=== PATIENT | male | born 2000 | race Caucasian/White ===

== ENCOUNTER 2024-01-26 01:38 | Inpatient (IN) | payer OTHER, SELFPAY ==
--- NOTE | 2024-01-26 01:53 | MHC.EDTECH ---
SISTER CALLS: [phone] AUNT CALLS: HIRO ALLISON: [phone] COUSIN IN WR @ THIS TIME
[2024-01-26 01:56] VITALS: BP 126/82; PULSE 96; RESP 16; O2SAT 97; BMI 35.0
[2024-01-26 02:03] VITALS: BP 107/59; PULSE 74; TEMP 36.9; O2SAT 95
[2024-01-26 02:50] LABS: MANUAL DIFF FLAG NO
[2024-01-26 02:51] LABS: Basophils Percent Auto 0.3 % (0-2); Eosinophils Absolute Auto 0.3 X10*3/uL (0.0-0.4); Eosinophils Percent Auto 2.9 % (0-4); Hematocrit 39.7 % (42.0-52.0); Hemoglobin 12.9 g/dl (14.0-18.0); Imm Gran Abs Auto 0.05 X10*3/uL (0.00-0.03); Imm Gran Pct Auto 0.5 % (0.0-0.4); Lymphocytes Absolute Auto 2.2 X10*3/uL (1.2-4.9); Lymphocytes Percent Auto 20.5 % (20-40); Mean Corpuscular HGB Conc 32.5 g/dl (31.0-36.0); Mean Corpuscular Volume 76.8 fL (80.0-98.0); Mean Platelet Volume 9.2 fL (9.4-12.4); Monocytes Absolute Auto 0.8 X10*3/uL (0.1-1.2); Monocytes Percent Auto 7.6 % (2-11); Neutrophils Absolute Auto 7.3 x10*3/uL (2.0-8.3); Neutrophils Percent Auto 68.2 % (45-73); Platelet Count 276 X10*3/uL (160-400); Red Blood Count 5.17 X10*6/uL (4.60-5.80); Red Cell Distribution Width 14.5 % (11.0-16.0); White Blood Count 10.7 X10*3/uL (4.8-10.8)
[2024-01-26 03:10] LABS: Ethanol < 10 mg/dL
[2024-01-26 03:12] LABS: Amphetamine Screen Urine Not Detected (Not Detect); Barbiturates, Urine Not Detected (Not Detect); Benzodiazepines Screen Urine Not Detected (Not Detect); Buprenorphine Scr Not Detected (Not Detect); Cannabinoid Screen Urine Not Detected (Not Detect); Cocaine Screen Urine Not Detected (Not Detect); Fentanyl, urine Not Detected (Not Detect); Methadone Screen, Urine Not Detected (Not Detect); Opiate Screen Urine Not Detected (Not Detect); Oxycodone Screen Urine Not Detected (Not Detect); Phencyclidine Screen Urine Not Detected (Not Detect)
[2024-01-26 03:15] LABS: Alanine Aminotransferase 39 U/L (0-40); Albumin Level 4.1 g/dL (3.5-5.0); Alkaline Phosphatase 74 U/L (39-117); Anion Gap 15 (12-20); Aspartate Amino Transferase 26 U/L (5-37); Bilirubin Total 0.2 mg/dL (0.0-1.0); Blood Urea Nitrogen 18 mg/dL (9-16); Calcium 9.8 mg/dL (8.4-10.2); Carbon Dioxide 24 mmol/L (22-29); Chloride 105 mmol/L (96-108); Creatinine Clr Calc Pharmacy 153.7; Estimated Glomerular Filt Rate > 60; Glucose Random 90 mg/dL (60-115); Potassium 4.2 mmol/L (3.3-5.1); Sodium 140 mmol/L (135-145); Total Protein 7.7 g/dL (6.5-8.0)
[2024-01-26 03:22] LABS: Acetaminophen LAB < 3 mcg/mL (<30); Salicylate < 5.0 mg/dL (15-30)
--- NOTE | 2024-01-26 05:18 | ED.PSYCH ---
HPI - Psych General Chief Complaint: Psychiatric Symptoms Stated Complaint: SI, ATTEMPT [facility]UMP [facility] PER EMS Time Seen by Provider: 01/26/24 05:17 Source: patient and EMS Mode of arrival: EMS Limitations: no limitations History of Present Illness ED Provider: DR. Montenegro HPI Narrative: 23-year-old male came in for evaluation of depression and SI. Patient was about to jump off the bridge when the police stopped him from jumping. Patient stated that he feels depressed because of a cumulative reason that is been piling up for awhile. declined any visual or auditory hallucination. Related Data Home Medications ?Medication ?Instructions ?Recorded ?Confirmed No Known Home Meds 01/26/24 01/26/24 Allergies Allergy/AdvReac Type Severity Reaction Status Date / Time No Known Allergies Allergy Verified 01/26/24 02:00 Review of Systems Review of Systems: all other systems are reviewed and are negative Constitutional: Reports as per HPI and Reports no additional constitutional complaints Eyes: Reports as per HPI and Reports no additional eye complaints Reports system reviewed and no additional complaints, except as documented Cardiovascular: Reports as per HPI and Reports no additional cardiovascular complaints Respiratory: Reports as per HPI and Reports no additional respiratory complaints Gastrointestinal: Reports as per HPI and Reports no additional gastrointestinal complaints Genitourinary: Reports no additional female genitourinary complaints Musculoskeletal: Reports no additional musculoskeletal complaints Skin/Breast: Reports system reviewed and no additional complaints, except as docu Psychiatric: Reports no additional psychiatric complaints Endocrine: Reports no additional endocrine complaints Hematologic/Lymphatic: Reports no additional hematologic/lymphatic complaints Allergic/Immunologic: Reports no additional allergic/immunologic complaints Reports system reviewed and no additional complaints, except as documented and Reports Abnormal speech present [facility] Social History Social History Advance Directives: No Advance Directives Information Provided: No Do you have a plan to hurt others: No Plan Physical Exam Vital Signs: Vital Signs: Last Vital Signs Temp 98.5 F 01/26/24 02:03 Pulse 74 01/26/24 02:03 Resp 16 01/26/24 01:56 BP 107/59 L 01/26/24 02:03 Pulse Ox 95 01/26/24 02:03 O2 Del Method Room Air 01/26/24 02:03 BMI result Body Mass Index 35.0 Vital signs have been reviewed and appear to be correct. Blood pressure elevated. Heart rate normal. Respiratory rate normal. Temperature normal. Oxygen saturation normal. Appearance: Alert. Oriented X3. No acute distress. Head: Normal external exam. Normocephalic. Atraumatic. No Garcia signs noted. No raccoon eyes noted Eyes: PERRLA. EOMI. Conjunctiva and sclera normal. Eyelids normal. ENT: TM's Normal. Pharynx normal. Uvula midline. Moist mucous membranes. No trismus noted. No drooling noted. No muffled voice noted. Neck: Normal inspection. Neck supple. FROM. No adenopathy. Thyroid Normal. No meningeal signs. No neck mass noted. CVS: Normal heart rate and rhythm. Heart sound normal. No murmurs noted. Pulses normal throughout. Respiratory: No respiratory distress. Painless inspiration. Breath sounds normal. No wheezes/rales/rhonchi noted. Chest nontender. No accessory muscle usage noted or decreased air movement noted. Abdomen: Soft and nontender. Bowel sounds normal in all 4 quadrants. No distention noted. No organomegaly noted. No visible injury noted. Back: No CVA tenderness. Full range of motion noted. Skin: Skin warm and dry. Normal skin color. Normal skin turgor. No rashes/lesions/lacerations noted. Extremities: No lower extremity edema. Extremities exhibit normal range of motion. Extremities nontender. Neuro: Oriented X 3. Cranial nerve exam: II-XII are grossly intact No motor deficit. No sensory deficit. Reflexes normal. Patient Orientation: Person, Place, Time and Situation, okay hygiene and grooming. Fair eye contact, attentive, no tics or tremors. Level of Consciousness: Awake, Appropriate and Alert Patient Behavior: Appropriate, Guarded, Cooperative and Anxious Mood Description: Constricted, Blunted and Apprehensive Affect Description: Constricted, Blunted and Apprehensive Patient Cognition Impaired: No Ability to Follow Directions: Excellent Speech Pattern: Clear, Appropriate and Spontaneous Speech, nonpressured, spontaneous with regular rate and rhythm, normal volume and prosody. No dysarthria. Memory Description: Intact, Immediate Intact and Short Term Intact Hallucinations: None Delusions: Not Present Thought Process: Intact Thought Content: presence of Suicidal Ideation and denies Homicidal Ideation. Depressive Symptoms: Not present. Judgement and Insight: Limited but adequate. Course Reevaluation(s) Reevaluation #1: medically cleared, care team evaluation is appreciated, patient is under section 12 now, start physician observation start physician observation now Time: 05:23 Medical Decision Making Differential Diagnosis Differential Diagnoses: The differential diagnosis associated with the presentation includes ( acute psychosis, acute depression, SI, electrolyte derangement, severe anemia, medical clearance, UTI, substance abuse.) Admission/Observation Consideration of admission/observation: Escalation of care including admission/observation considered Lab Data MDM Lab Attestation statement: I reviewed the patient's lab results. 01/26/24 02:40 01/26/24 02:40 Labs: Lab Results 01/26/24 Range/Units 02:40 WBC 10.7 (4.8-10.8) X10*3/uL RBC 5.17 (4.60-5.80) X10*6/uL Hgb 12.9 L (14.0-18.0) g/dl Hct 39.7 L (42.0-52.0) % MCV 76.8 L (80.0-98.0) fL MCH 25.0 L (27.0-33.0) pg MCHC 32.5 (31.0-36.0) g/dl RDW 14.5 (11.0-16.0) % Plt Count 276 (160-400) X10*3/uL MPV 9.2 L (9.4-12.4) fL Immature Gran % (Auto) 0.5 H (0.0-0.4) % Neut % (Auto) 68.2 (45-73) % Lymph % (Auto) 20.5 (20-40) % [place] % (Auto) 7.6 (2-11) % Eos % (Auto) 2.9 (0-4) % Baso % (Auto) 0.3 (0-2) % Lymph # (Auto) 2.2 (1.2-4.9) X10*3/uL [place] # (Auto) 0.8 (0.1-1.2) X10*3/uL Eos # (Auto) 0.3 (0.0-0.4) X10*3/uL Baso # (Auto) 0.0 (0.0-0.2) X10*3/uL Abs Immat Gran (auto) 0.05 H (0.00-0.03) X10*3/uL Absolute Neuts (auto) 7.3 (2.0-8.3) x10*3/uL Absolute Nucleated RBC 0.000 (0.0-0.012) X10*3/uL Nucleated RBC % (auto) 0.0 (0.0-0.2) /100WBC Sodium 140 (135-145) mmol/L Potassium 4.2 (3.3-5.1) mmol/L Chloride 105 (96-108) mmol/L Carbon Dioxide 24 (22-29) mmol/L Anion Gap 15 (12-20) BUN 18 H (9-16) mg/dL Creatinine 0.89 (0.5-1.4) mg/dL Estim Creat Clear Calc 153.7 Estimated GFR > 60 Random Glucose 90 (60-115) mg/dL Calcium 9.8 (8.4-10.2) mg/dL Total Bilirubin 0.2 (0.0-1.0) mg/dL AST 26 (5-37) U/L ALT 39 (0-40) U/L Alkaline Phosphatase 74 (39-117) U/L Total Protein 7.7 (6.5-8.0) g/dL Albumin 4.1 (3.5-5.0) g/dL Salicylates < 5.0 L (15-30) mg/dL Urine Opiates Screen Not Detected (Not Detect) Ur Buprenorphine Scrn Not Detected (Not Detect) ng/mL Ur Oxycodone Screen Not Detected (Not Detect) ng/mL Urine Methadone Screen Not Detected (Not Detect) ng/mL Urine Fentanyl Screen Not Detected (Not Detect) Acetaminophen < 3 (<30) mcg/mL Ur Barbiturates Screen Not Detected (Not Detect) Ur Phencyclidine Scrn Not Detected (Not Detect) Ur Amphetamines Screen Not Detected (Not Detect) U Benzodiazepines Scrn Not Detected (Not Detect) Urine Cocaine Screen Not Detected (Not Detect) U Marijuana (THC) Screen Not Detected (Not Detect) Ethyl Alcohol < 10 mg/dL Discharge Plan Discharge Clinical Impression: Depression, Suicidal ideation Patient Disposition: Still a Patient Prescriptions: No Action No Known Home Meds Print Language: Slovak
--- NOTE | 2024-01-26 07:22 | PC.NURSE ---
Assumed care of patient at 0645, patient appears to be sleeping, no apparent distress noted. Continue plan of care for inpatient bedsearch
[2024-01-26 08:02] LABS: Appearance Urine Clear; Color Urine Yellow; Glucose Urine UA Negative (Negative); Leukocyte Esterase Urine Negative (Negative); Nitrite Urine Negative (Negative); Specific Gravity - Urine >= 1.030 (1.005-1.025); UMIC TRIGGER UA YES; Urine Blood Negative (Negative); Urine Ketones Trace mg/dL (Negative); Urine Protein 30 (1+) mg/dL (Neg-Trace)
[2024-01-26 08:07] LABS: Bacteria Urine None Seen (None Seen); Hyaline Casts Urine 0-2 /LPF (0-2); RBC Urine 0-2 /HPF (0-2); Squamous Epithelial Cell Urine 0-2 /HPF (0-2); WBC Urine 0-5 /HPF (0-5)
--- NOTE | 2024-01-26 09:03 | PC.NURSE ---
This RN spoke with patients mother on the phone who was requesting information about him. This RN educated her that we cannot give his information out without his permission. Mother offered the following information: Patient was diagnosed with Bipolar and ADHD when he was young, was prescribed Focalin, Ritalin and Clonidine however when he turned 20 he stopped taking all of his meds and no longer attended his psych appointments. She reports there is a family hx of schizophrenia on the mothers side as well Mothers phone number is [phone] (Erika Aguilar) (of note, mother is albanian speaking only, account technician required)
[2024-01-26 16:32] VITALS: BP 129/78; PULSE 74; RESP 18; TEMP 36.3; O2SAT 97; BMI 37.6
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
[2024-01-26 20:00] VITALS: BP 126/58; PULSE 59; RESP 18; TEMP 36.4; O2SAT 97
[2024-01-27 08:00] VITALS: BP 118/58; PULSE 66; RESP 18; TEMP 36.2; O2SAT 96
[2024-01-27 08:40] LABS: Estimated Average Glucose 114 mg/dL; Hemoglobin A1c % 5.6 % (<6.0)
[2024-01-27 08:55] LABS: Cholesterol 170 mg/dL (<200); HDL Cholesterol 36 mg/dL (>40); LDL Cholesterol Calculated 117 mg/dL (<100); Magnesium 1.9 mg/dL (1.6-2.6); Triglycerides 88 mg/dL (<150)
[2024-01-27 09:12] LABS: Free T4 (Free Thyroxine) 0.85 ng/dL (0.71-1.85)
[2024-01-27 09:23] LABS: Folate 9.2 ng/mL (> or = 4.0); Vitamin B12 476 pg/mL (200-900)
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
[2024-01-27 20:00] VITALS: BP 126/79; PULSE 58; RESP 18; TEMP 36; O2SAT 97
[2024-01-27] MEDS: traZODone HCL 50 MG TABLET PO (20:58)
[2024-01-27] MEDS: Acetaminophen 325 MG TABLET 650 MG PO (20:58)
[2024-01-28 07:00] VITALS: BMI 37.5
[2024-01-28 08:00] VITALS: BP 110/57; PULSE 57; RESP 18; TEMP 36.1; O2SAT 96
--- NOTE | 2024-01-28 10:51 | HO.PSYCHPN ---
Subjective Subjective Date of Service: 01/28/24 Reason For Visit: Depression, suicidal ideation Subjective Notes: Section 12B Healthcare Proxy: No Guardianship: No Medical Problems Affecting Mental Status: No Interim History: Section 12B to 01/28. Pt denies SI/HI/AH/VH. Asks to discharge. Spoke with aunt, Felipa [phone] who is worried that he is hospitalized and would like him to follow up at home. They have talked with LUCRETIA De Luna and pt can get appt for therapy/meds if he self presents. Felipa reports pt is not like this, he is hard working, with no mental illness. She reports mother is Bipolar with alcoholism and difficult to deal with. Mother feels the need to control pt. Felipa attempts to support him and encourage his success. She concurs with him not taking medication, will pick him up upon discharge 01/28 and will work with him to rebalance school, work, personal life and offer family support during this time. Medication Compliance: No Side effects from medications: No Attending Groups: No Review of Systems Acute medical concerns: No Review of Systems Review of Systems Yes all other systems are reviewed and are negative Mental Status Exam Mental Status Exam Patient Orientation: Person, Place, Time and Situation Level of Consciousness: Alert Patient Behavior: Talkative, Anxious and Good Eye Contact Mood Description: Anxious Affect Description: Anxious Patient Cognition Impaired: No Ability to Follow Directions: Good Speech Pattern: Spontaneous Speech Memory Description: Intact Hallucinations: None Delusions: Not Present Thought Process: Goal Oriented Thought Content: positive for Goal Oriented Depressive Symptoms: Thoughts of /Suicide (denies currently) Judgement: Fair Diagnostics Vital Signs (24Hr): Vital Signs - 24 hr 01/27/24 20:00 01/28/24 08:00 Temperature 96.8 F 97.0 F Pulse Rate 58 57 Respiratory Rate 18 18 Blood Pressure 126/79 110/57 L Pulse Oximetry 97 96 Oxygen Delivery Method Room Air Room Air BMI result Body Mass Index 37.6 Labs 01/26/24 02:40 01/26/24 02:40 Labs: Laboratory Results - last 48 hr 01/27/24 08:15 Estimat Average Glucose 114 Hemoglobin A1c % 5.6 Magnesium 1.9 Triglycerides 88 Cholesterol 170 LDL Cholesterol, Calc 117 H HDL Cholesterol 36 L Vitamin B12 476 Folate 9.2 TSH 0.40 Free T4 0.85 Medications Medications Current Medications Acetaminophen (Acetaminophen 325 Mg Tablet) 650 mg PO Q6H PRN PRN Reason: Headache/Pain Mild Scale (1-3) Last Admin: 01/27/24 20:58 Dose: 650 mg Al Hydroxide/Mg Hydroxide (Magnesium Hydrox/Alum Hydrox 30 Ml Oral.Susp) 30 ml PO Q6H PRN PRN Reason: Heartburn/Nausea Hydroxyzine HCl (Hydroxyzine Hcl 25 Mg Tablet) 25 mg PO Q6H PRN PRN Reason: Anxiety Magnesium Hydroxide (Milk Of Magnesia 30 Ml Oral.Susp) 30 ml PO DAILY PRN PRN Reason: Constipation Nicotine (Nicotine 21 Mg Patch.Td24) 21 mg TRANSDERMA DAILY PRN PRN Reason: nicotine cravings Nicotine Polacrilex (Nicotine Polacrilex 2 Mg Gum) 4 mg BUCCAL Q2H PRN PRN Reason: Nicotine Cravings Trazodone HCl (Trazodone Hcl 50 Mg Tablet) 50 mg PO BEDTIME MRX1 PRN PRN Reason: Insomnia Last Admin: 01/27/24 20:58 Dose: 50 mg Allergies Allergies Allergy/AdvReac Type Severity Reaction Status Date / Time No Known Allergies Allergy Verified 01/26/24 02:00 Assessment & Plan Assessment & Plan (1) Depression: Status: Acute Code(s): F32.A - Depression, unspecified (2) Suicidal ideation: Status: Acute Code(s): R45.851 - Suicidal ideations Plan 23 yo male, hx ADHD, recent move to the area to work and attend school with several stressors and losses over the past year, s/p viewing a tic tok video after a long work day and triggered SI-pt called family, suicide hotline, but proceeded to a local bridge and police needed to prevent him from jumping. Plan: Admit, 12B, 15 minute checks Declines medications Collateral contact Full milieu encouraged. 01/27- Section XIIB will 01/28. Pt will discharge to family support. Family has arranged [facility] to work with him as an out patient. Reason for continued inpatient stay Substantial Risk for: stable for discharge Time Spent With Patient Time: Total time managing care of this patient today ____ minutes.
[2024-01-28 20:00] VITALS: BP 134/60; PULSE 60; RESP 16; TEMP 36.8; O2SAT 94
[2024-01-28] MEDS: traZODone HCL 50 MG TABLET PO (23:05)
[2024-01-28] MEDS: Acetaminophen 325 MG TABLET 650 MG PO (23:05)
[2024-01-29 08:00] VITALS: BP 111/54; PULSE 59; RESP 16; TEMP 36.8; O2SAT 95
--- NOTE | 2024-02-16 17:19 | P.DS_ITS ---
DS: Providers Provider Date of Service: 01/29/24 Date of admission: 01/26/24 11:26 Date of discharge: 01/29/24 Primary care physician: Unknown Physician Admitting clinician: Zoraida Stoner Attending physician on admission: Augustus Biswas Attending physician on discharge: Augustus Biswas Discharging clinician: Zoraida Stoner DS: Diagnosis Discharge Diagnosis (1) Depression: Status: Acute (2) Suicidal ideation: Status: Resolved DS: Medications Discharge Medications Home Medications: Home Medications ?Medication ?Instructions ?Recorded ?Confirmed No Known Home Meds 01/26/24 01/26/24 Mental Status Exam Mental Status Exam Patient Orientation: Person, Place, Time and Situation Level of Consciousness: Alert Patient Behavior: Talkative, Anxious and Good Eye Contact Mood Description: Anxious Affect Description: Anxious Patient Cognition Impaired: No Ability to Follow Directions: Good Speech Pattern: Spontaneous Speech Memory Description: Intact Hallucinations: None Delusions: Not Present Thought Process: Goal Oriented Thought Content: positive for Goal Oriented Depressive Symptoms: Thoughts of /Suicide (denies currently) Judgement: Fair DS: Summary Hospital Course Hospital Course: Admission to adult psychiatry for depression and adjustment reaction, with mixed disturbance of emotion and conduct. Pt was found attempting to jump from a local bridge. He reports moving to [place] from [place] on 09/05/23 to attend automotive school with a senior care goal of entering [employer] in May. Pt has been attending school, working two jobs, not sleeping, traveling back and forth to [place] and not making many friends in [place]. Identifies precipitants as a friend dying suddenly in [place] recently, a break up with a girlfriend in [place] and feeling like a failure overall. Pt reports he came home from work, viewed a [employer] video that was upsetting to him, posted a video himself, called his cousin in [place] to talk and found this helpful but not long enough, then went to the bridge.Pt's aunt was very involved in his care. She took the place of parent as mother in [place] has mental illness and is impaired. Aunt has alliances with [facility] and advocated for pt to come to her home, see providers of her choice and not continue to [facility] treatment. Pt was discharged with this plan, able to contract for his safety. He will stay with his aunt and she will take responsibility for his care and safety. Status at Discharge Functional status at discharge: independent ambulation Overall status at discharge: patient is progressing back to baseline Time Spent with Patient Time attestation: Total time managing care of this patient today ____ minutes. Time spent: Less than 30 minutes Discharge Plan Discharge Anticipated Discharge Date/Time: 01/29/24 12:00 Patient Disposition: Home, Self-Care Discharge Diagnosis: Mixed Adjustment Reaction with Disturbance of Emotions and Conduct Referrals: [facility] and Therapy Intake Appts [Other] - 02/01/24 10:00 am (Walk In Hours: M-F 10am-12pm) [facility] ([facility]) & Crisis Services [Other] - 1 Week (- An outpatient behavioral health clinic - 26/01 mobile crisis services - Crisis stabilization for youth and adults in person and via telehealth The [facility] program delivers these services as an alternative to hospital emergency departments. It also offers respite, outreach, medication management, and peer- level support.) Physician,Unknown J [Primary Care Provider] - (Pt declined for [facility] to schedule follow up appointment) Discharge Medications: No Action No Known Home Meds Discharge Orders: Discharge Order (Routine); Ordered 01/29/24 Ordered By: Zoraida Stoner Diet: Advance to usual diet Activity on Discharge: As tolerated Stand Alone Forms: Patient Portal Discharge page, Community Support Print Language: Nepali Care Plan Goals: Mood and Behavioral Stabilization Health Concerns: Mood and Behavioral Stabilization Plan of Treatment: Family has made appointment for pt to begin out patient treatment with [facility]. He needs to present to [facility] to begin this process when ready. Declines medication AuntFelipa is a strong support [phone], and will assist pt upon discharge Call/Return as needed Assessment: Expiration of Section XIIB. Denies SI/HI/AH/VH. Family support is strong. Discharge Date/Time: 01/29/24 11:50
== END 2024-01-29 11:50 | disposition home or self-care (01) | DRG 754 ==
LOC: HO.ED 05:18 → HO.PM5 12:13
PROVIDERS: Internal Medicine; Admitting Provider Clinical Nurse Specialist Psychiatric/Mental Health, Adult; Emergency Provider Emergency Medicine; Visit Provider Clinical Nurse Specialist Psychiatric/Mental Health, Adult
DX: F32.A Depression, unspecified (principal); R45.851 Suicidal ideations; F90.9 Attention-deficit hyperactivity disorder, unspecified type
CPT/HCPCS: 36415; 80053; 80061; 80143; 80179; 80307; 81001; 81003; 82607; 82746; 83036; 83735; 84439; 84443; 85025; 99285; S9485

== ENCOUNTER → 2024-01-26 11:26 | Outpatient (BNV) | payer OTHER, SELFPAY | PROVIDERS: Admitting Provider Clinical Nurse Specialist Psychiatric/Mental Health, Adult; Emergency Provider Emergency Medicine; Visit Provider Clinical Nurse Specialist Psychiatric/Mental Health, Adult | DX: F32.2 Major depressive disorder, single episode, severe without psychotic features (principal); R45.851 Suicidal ideations | CPT/HCPCS: 99231; 99232; 99233 ==